=== PATIENT | female | born 1995 | race American Indian/Alaskan Native ===

== ENCOUNTER 2018-09-21 19:57 | Emergency (ER) | payer SELFPAY ==
[2018-09-21 21:06] LABS: Basophils # (Auto) 0.1 K/mm3 (0.0-0.1); Basophils % (Auto) 0.6 % (0.0-1.8); Eosinophils # (Auto) 0.1 K/mm3 (0.0-0.4); Hematocrit 34.6 % (30.3-42.9); Lymphocytes # (Auto) 1.2 K/mm3 (1.2-5.4); Lymphocytes % (Auto) 12.8 % (13.4-35.0); Mean Corpuscular HGB Conc 32 % (30-34); Mean Corpuscular Volume 76 fl (79-97); Monocytes # (Auto) 0.5 K/mm3 (0.0-0.8); Monocytes % (Auto) 5.2 % (0.0-7.3); Platelet Count 209 K/mm3 (140-440); Red Blood Count 4.54 M/mm3 (3.65-5.03); Red Cell Distribution Width 16.7 % (13.2-15.2)
[2018-09-21 21:19] LABS: Bilirubin,Urine NEG (Negative); Blood,Urine NEG (Negative); Color,Urine Yellow (Yellow); Mucus,Urine 3+ /HPF
[2018-09-21 21:27] LABS: Alanine Aminotransferase 8 units/L (7-56); Albumin 3.9 g/dL (3.9-5); BUN/Creatinine Ratio 20; Blood Urea Nitrogen 8 mg/dL (7-17); Calcium 9.1 mg/dL (8.4-10.2); Hemolysis Index 4
--- NOTE | 2018-09-21 23:59 | Ultrasound Report ---
FINAL REPORT EXAM: US OB <= 14 WEEKS FETUS HISTORY: vaginal bleeding last menstrual period July 04, 2018. Estimated gestational age by dates is 11 weeks 2 days. TECHNIQUE: Transabdominal grayscale, color flow and M-mode imaging of the pelvis was performed. Comparison: None FINDINGS: The uterus measures 14.5 centimeters x 7.5 centimeters x 10 centimeters and contains an intrauterine gestational sac with yolk sac and pole. Estimated gestational age by measurement of crown-rump length is 12 weeks 1 day. heart rate is measured at 160 beats per minute by M-mode imaging. The right ovary measures 2.7 centimeters x 1.8 centimeters x 1.5 centimeters and is unremarkable in a ppearance. The left ovary measures 3.2 centimeters x 1.7 centimeters x 2.8 centimeters and is unremarkable in ap pearance. No free fluid is demonstrated in the pelvis. IMPRESSION: 1. Single living intrauterine gestation with estimated gestational age of 12 weeks 1 day by measureme nt of crown-rump length.
--- NOTE | 2018-09-22 00:34 | Emergency Department Report ---
ED Female HPI - General Chief complaint: Abdominal Pain Stated complaint: /ABDOMINAL PAIN Time Seen by Provider: 09/22/18 00:29 Source: patient Mode of arrival: Ambulatory Limitations: No Limitations - History of Present Illness Initial comments: 23-year-old -[place] female that is 2. One comes in for at [place] pain 1 week and vaginal bleeding that started today. Patient reports that she's gone through 4 pads today. Patient has not had any care currently taking no vitamins. She describes the pain as sharp lower abdomen intermittent at times but will be constant at times. Patient has taken no pain medication. Patient denies any fever or chills but admits to nausea and vomiting but not that much. Patient denies any diarrhea today denies any vaginal discharge. Patient reports no past medical history currently takes no medications on a daily basis has no known drug allergies. She had no com plications with the in the past and had no complications with her vaginal delivery. MD Complaint: vaginal bleeding, pelvic pain -: days(s) (1day vaginal bleeding), week(s) (1 intermittent abdominal pain) Radiation: suprapubic Quality: sharp Consistency: intermittent Improves with: none Worsens with: none Are you Now?: Yes Last Menstrual Period: 06/29/18 EDC: 04/05/19 Associated Symptoms: vaginal bleeding, abdominal pain, nausea/vomiting - Related Data Sexually active: Yes : 2 Para: 1 A: 0 Previous Rx's Medication Instructions Recorded Last Taken Type Vits96/Iron Fum/Folic 1 each PO QDAY #90 tablet 09/22/18 Unknown Rx [ Tablet] metroNIDAZOLE [Flagyl] 500 mg PO Q8HR 7 Days #21 tablet 09/22/18 Unknown Rx Allergies Allergy/AdvReac Type Severity Reaction Status Date / Time No Known Allergies Allergy Unverified 09/21/18 20:26 ED Review of Systems ROS: Stated complaint: /ABDOMINAL PAIN Other details as noted in HPI Comment: All other systems reviewed and negative Gastrointestinal: abdominal pain, nausea, vomiting, other (vaginal bleeding). denies: diarrhea ED Past Medical Hx - Past Medical History Previous Medical History?: No - Surgical History Past Surgical History?: No - Social History Smoking Status: Former Smoker Substance Use Type: Marijuana - Medications Home Medications: Home Medications Medication Instructions Recorded Confirmed Last Taken Type Vits96/Iron Fum/Folic 1 each PO QDAY #90 tablet 09/22/18 Unknown Rx [ Tablet] metroNIDAZOLE [Flagyl] 500 mg PO Q8HR 7 Days #21 tablet 09/22/18 Unknown Rx ED Physical Exam - General Limitations: No Limitations General appearance: alert, in no apparent distress - Head Head exam: Present: atraumatic, normocephalic - ENT ENT exam: Present: mucous membranes moist - Respiratory Respiratory exam: Present: normal lung sounds bilaterally. Absent: respiratory distress - Cardiovascular Cardiovascular Exam: Present: regular rate, normal rhythm. Absent: systolic murmur, diastolic murmur, rubs, gallop - GI/Abdominal GI/Abdominal exam: Present: soft, tenderness. Absent: distended - External exam: Present: normal external exam Speculum exam: Present: normal speculum exam, other (no evidence of any vaginal bleeding noted in the vaginal canal or cervix) Bi-manual exam: Present: adnexal tenderness (right) - Neurological Exam Neurological exam: Present: alert, oriented X3 - Psychiatric Psychiatric exam: Present: normal affect, normal mood - Skin Skin exam: Present: warm, dry, intact, normal color. Absent: rash ED Course Vital Signs 09/21/18 20:26 Temperature 98.5 F Pulse Rate 86 Respiratory 14 Rate Blood Pressure 119/46 O2 Sat by Pulse 100 Oximetry ED Medical Decision Making - Lab Data Result diagrams: 09/21/18 20:49 09/21/18 20:49 - Radiology Data FINAL REPORT EXAM: US OB lt; = 14 WEEKS FETUS HISTORY: vaginal bleeding last menstrual period July 04, 2018. Estimated gestational age by dates is 11 weeks 2 days. TECHNIQUE: Transabdominal grayscale, color flow and M-mode imaging of the pelvis was performed. Comparison: None FINDINGS: The uterus measures 14.5 centimeters x 7.5 centimeters x 10 centimeters and contains an intrauterine gestational sac with yolk sac and pole. Estimated gestational age by measurement of crown-rump length is 12 weeks 1 day. heart rate is measured at 160 beats per minute by M-mode imaging. The right ovary measures 2.7 centimeters x 1.8 centimeters x 1.5 centimeters and is unremarkable in appearance. The left ovary measures 3.2 centimeters x 1.7 centimeters x 2.8 centimeters and is unremarkable in appearance. No free fluid is demonstrated in the pelvis. IMPRESSION: 1. Single living intrauterine gestation with estimated gestational age of 12 weeks 1 day by measurement of crown-rump length. Transcribed By: ED Dictated By: LAWRENCE HERNANDEZ MD Electronically Authenticated By: LAWRENCE HERNANDEZ MD Signed Date/Time: 09/21/18 2359 DD/ 18 TD/TT: 09/22/182018 Critical care attestation.: If time is entered above; I have spent that time in minutes in the direct care of this critically ill patient, excluding procedure time. ED Disposition Clinical Impression: BV (bacterial vaginosis) UTI (urinary tract infection) Qualifiers: Urinary tract infection type: site unspecified Hematuria presence: with hematuria Qualified Code(s): N39.0 - Urinary tract infection, site not specified Disposition: TO HOME OR SELFCARE Is pt being admited?: No Does the pt Need Aspirin: No Condition: Stable Instructions: Abdominal Pain (ED), Bacterial Vaginosis (ED) Additional Instructions: Please complete antibiotics as prescribed. Please take vitamins as prescribed. Please increase her water intake by 2 L a day. Prescriptions: metroNIDAZOLE [Flagyl] 500 mg PO Q8HR 7 Days #21 tablet Vits96/Iron Fum/Folic [ Tablet] 1 each PO QDAY #90 tablet Referrals: [facility] [Primary Care Provider] - 3-5 Days [facility]/DIRECTOR OF GROUP COUNSELING PROGRAM, [facility] [Provider Group] - 3-5 Days [facility] [Provider Group] - 3-5 Days [facility] [Provider Group] - 3-5 Days Forms: STI Treatment and Prevention, Accompanied Note
[2018-09-22] MEDS ORDERED: TYLENOL PO ONE (01:01)
[2018-09-22 03:36] VITALS: BP 115/59
== END 2018-09-22 03:36 | disposition home or self-care (01) ==
LOC: ED 19:57
DX: O23.41 Unspecified infection of urinary tract in pregnancy, first trimester (principal); O23.591 Infection of other part of genital tract in pregnancy, first trimester; N76.0 Acute vaginitis; Z3A.11 11 weeks gestation of pregnancy
CPT/HCPCS: 36415; 76801; 80053; 81001; 84702; 84703; 85025; 87210; 87591